=== PATIENT | female | born 1980 | race Caucasian/White ===

== ENCOUNTER 2024-12-31 15:30 | Outpatient (REF) | payer OTHER, SELFPAY ==
--- OUTSIDE RECORDS SUMMARY | 2024-12-31 17:04 | XMS_ITS | Clinical Summary ---
Author Organization [employer] [facility] Address [address] [place] [address] Care Team Providers Care Enterprise Project Manager Name Role Phone Unavailable Primary Care Provider Unavailabl e Allergies No known active allergies Medications omeprazole (PriLOSEC) [address] capsule PLEASE SEE ATTACHED FOR DETAILED DIRECTIONS 5 Active losartan (Cozaar) 25 MG tablet Take by mouth. Activ e gabapentin (Neurontin) 800 MG tablet Take 1 tablet by mouth every 6 (six) hours during the day. 5 Active folic acid (Folvite) 1 MG tablet Take 1 tablet by mouth Once per day. 5 Active lovastatin (Mevacor) 20 MG tablet Take 1 tablet by mouth Once per day. 5 Active QUEtiapine (SEROquel) 100 MG tablet TAKE 1.5 TABLETS ORALLY AT EVERY BEDTIME 5 Active Active Problems No known active problems Encounters Date Type Department Care Team Description 10/14/2024 9:00 AM EDT Office Visit [facility] [address] [place] [address] Jordyn Prescott from Last 3 Months Social History Tobacco Use Types Packs/Day Years Used Date Smoking Tobacco: Every Day Cigarettes Smokeless Tobacco: Never Tobacco Cessation:Ready to Q uit: Not Asked; Counseling Given: Not Answered Comments:Vapes Alcohol Use Standard Drinks/Week Comments Defer 0 (1 standard drink = 0.6 oz pur e alcohol) Comments Unknown Sex and Gender Information Value Date Recorded Sex Assigned at Female 02/08/2024 12:54 PM EDT Legal Sex Female 12:52 PM EDT Gender Identity Female 02/08/2024 12:54 PM EDT Sexual Orientation Choose not to disclose 2023 12:54 PM EDT Last Filed Vital Signs Vital Sign Reading Time Taken Comments Blood Pressure 122/76 10/14/2024 8:57 AM EDT Pulse 60 03/01/2024 12:53 PM EDT Temperature - - Respiratory Rate - - Oxygen Saturation - - Inhaled Oxygen Concentration - - Weight - - Height - - Body Mass Index - - Plan of Treatment Upcoming Encounters Date Type Department Care Team ([facility] st Contact Info) Description 01/07/2025 2:30 PM EDT Office Visit [facility] [address] [place] [address] Shaka Teixeira, BRENNANS [address] [facility] [place] [address] 04/16/2025 1:00 PM EST Office Visit [facility] [address] [place] [address] oJrdyn Prescott Health Maintenance Due Date Last Done Comments Dental Oral Exam 1982 Depression Screening 1982 HIV Screening 1982 Lipid Panel 1982 SDOH Screening 1982 Disability Screening 1982 Alcohol/Substance Use Screening 1994 Family Planning (PISQ) 1997 HPV Vaccines (1 - 3-dose series) 1997 Hepatitis C Screening 2000 DTaP/Tdap/Td Vaccines (1 - Tdap) 2001 Hepatitis B Vaccines (1 of 3 - 19+ 3-dose series) 2001 Pneumococcal Vaccine: Pediatrics (0 to 5 Years) and At-Risk Patients (6 to 49) Years (1 of 2 - PCV) 2001 Pap Smear 2003 Cervical Cancer Screening 2012 HPV/Cotest 2012 Mammogram 2022 COVID-19 Vaccine (1 - 2023-2 5 season) 2024 Influenza Vaccine (#1) 2025 Dental X-Ray: Bitewings 03/02/2025 03/01/2024 Dental Prophylaxis 04/16/2025 10/14/2024, 03/01/2024 Tobacco Screening 10/14/2025 10/14/2024 Dental X-Ray: Full Mouth 03/02/2027 03/01/2024 Zoster Vaccines (1 of 2) 2032 RSV Patients and Patients Aged 60 years or older (1 - 1-dose 75+ series) 2057 HIB Vaccines Aged Out No longer eligi ble based on patient's age to complete this topic Hepatitis A Vaccines Aged Out No long er eligible based on patient's age to complete this topic IPV Vaccines Aged Out No longer eligi ble based on patient's age to complete this topic Meningococcal B Vaccine Aged Out No l onger eligible based on patient's age to complete this topic Meningococcal Vaccine Aged Out No [place] eligible based on patient's age to complete this topic RSV under 20 months Aged Out No longe r eligible based on patient's age to complete this topic Rotavirus Vaccines Aged Out No longer eligible based on patient's age to complete this topic Procedures Procedure Name Priority Date/Time Associated Diagnosis Comments ORAL HYGIENE INSTRUCTIONS Routine 2024 9:00 AM EDT PROPHYLAXIS - ADULT Routine 10/14/2024 9 :00 AM EDT INTRAORAL - COMPLETE SERIES OF RADIOGRAPHIC IMAGES Routine 03/01/2024 1:00 PM EDT from Last 3 Months or Most Recently Relevant to Health Maintenance Insurance [address] [place] [address]
--- OUTSIDE RECORDS SUMMARY | 2024-12-31 17:04 | XMS_ITS | Clinical Summary ---
Author Organization [facility] Address [address] [place] [address] Care Team Providers Care Cashier Office Name Role Phone BabsBekah Primary Care Provider [phone] Source Comments PLEASE NOTE, if this patient is a minor, it may be UNLAWFUL to discuss sensitive information that is contained in these records (such as FAMILY PLANNING, MENTAL HEALTH or SUBSTANCE ABUSE) with the minor patient's parent or other person without the patient's specific authorization.[facility] Allergies No known active allergies Medications loratadine (CLARITIN) 10 mg tabletIndication s:Seasonal allergic rhinitis, unspecified allergic rhinitis trigger Take 1 Tab by mouth once daily as needed for allergies 30 Tab 2 7 Active aspirin-acetamin ophen-caffeine (EXCEDRIN MIGRAINE) 250-250-65 mg per tabletIndication s:Migraine without aura and without status migrainosus, not intractable Take 1 Tab by mouth every 6 (six) hours as needed for pain (migraine mild-mod) 50 Tab 3 7 Active amitriptyline (ELAVIL) 25 mg tabletIndication s:Migraine with aura and without status migrainosus, not intractable Take 1 Tab by mouth nightly at bedtime 30 Tab 2 7 Active SUMAtriptan (IMITREX) 25 mg tabletIndication s:Migraine with aura and without status migrainosus, not intractable Take 1 Tab by mouth once as needed for migraine May repeat in 2 hours if no relief. Do not take more than 8 tablets in 24 hours. 30 Tab 7 Active melatonin 10 mg tabIndications:P sychophysiologic al insomnia Take 1 Tab by mouth nightly at bedtime as needed (insomnia) 30 Tab 2 7 Active methocarbamol (ROBAXIN) 500 mg tabletIndication s:Muscle spasm of back TOME KATHY TABLETA CHELO VECES AL JENELLE 60 Tab 9 Active Active Problems Problem Noted Date Diagnosed Date Bipolar II disorder, most re cent episode major depressive (HCC-CMS) - Moderate 07/13/2018 Psychophysiological insomnia 11/02/2016 Ectopic without intrauterine ([facility]-H[facility]) 08/09/2016 Overview (11/08/2016): 10/26/16 F/u Dr Medina at [facility]. S/p lap Right salpingectomy for ruptured ectopic 07/30/16. On Depo for control. C/o Pain on L side. labs done, pain assessment not c/w acute process, advised heat and Tylenol, f/u 6 weeks. Migraine without aura and wi thout status migrainosus, not intractable 07/13/2016 Overview (11/11/2016): 10/22/16 [facility] for VELASQUEZ, no treatment given Immunizations Immunization Administration Dates Next Due Flu, Preservative Free 2018,07/13/2016 PFIZER COVID VACCINE, PURPLE CAP, 12+ 02/04/2021 ,12/24/2020 Pfizer-BioNTech COVID-19 Vac cine Bivalent, (SPANGLER PFIZER-BIONTECH COVID-19 VACCINE BIVALENT, (SPANGLER CAP 04/21/2022 Social History Tobacco Use Types Packs/Day Years Used Date Smoking Tobacco: Never Smokeless Tobacco: Never Alcohol Use Standard Drinks/Week Comments No 0 (1 standard drink = 0.6 oz pur e alcohol) Social Connections Answer Date Recorded Connectedness 0 02/02/2024 Financial Resource Strain Answer Date R ecorded Financial Resource Strain 0 2018 Stress Answer Date Recorded Stress 0 01/06/2019 Physical Activity Answer Date Recorded Physical Activity 0 01/06/2019 Food Insecurity Answer Date Recorded Food 0 02/08/2024 Transportation Needs Answer Date Record ed Transportation 0 01/06/2019 Housing Stability Answer Date Recorded Housing 0 01/06/2019 Safety and Environment Answer Date Tong rded Safety 0 01/06/2019 Utilities Answer Date Recorded Utilities 0 01/06/2019 Employment Answer Date Recorded Stress 0 02/02/2024 Comments No Sex and Gender Information Value Date Recorded Sex Assigned at Female 2018 8:29 AM PST Legal Sex Female 12:49 PM PST Gender Identity Female 2018 8:29 AM PST Sexual Orientation Straight 2018 8: 29 AM PST Last Filed Vital Signs Vital Sign Reading Time Taken Comments Blood Pressure 100/70 2018 11:30 AM EST Pulse 78 2018 11:30 AM EST Temperature 36.6 C (97.9 F) 2018 11:30 AM EST Respiratory Rate 18 2018 11:30 AM EST Oxygen Saturation 97% 05/10/2016 3:59 PM EST Inhaled Oxygen Concentration - - Weight 75.3 kg (166 lb) 2018 11:30 AM EST Height 170.2 cm (5' 7 ) 2018 11:30 AM EST Body Mass Index 26 2018 11:30 AM EST Plan of Treatment Health Maintenance Due Date Last Done Comments Diabetes Screening 1982 HPV Screening 1982 Hepatitis C Screening 1982 Lipid Screening 1982 Pap + HPV 1982 Tobacco Screening 1982 HIV Screening 1997 Relationship Safety Screening/Counseling 1997 Imm-Hepatitis B (1 of 3 - 19 + 3-dose series) 2001 Cervical Cancer Screening 2003 Pap Smear 2003 Hypertension Screening (#1) 2019 Anxiety Screening 07/03/2019 07/03/2018 Breast Cancer Screening (Mammogram) 2022 [id number] ( season) 2024 04/21/2022, 02/04/2021, 12/24/2020 Alcohol and Drug Screen 05/15/2024 07/03/19 19, 07/03/2018, 2018, Additional history exists Depression Annual Screen 05/15/2024 07/03/2018, 03/0 05/2016 Imm-Influenza (#1) 2025 03/30/2021, 1 , 2018, Additional history exists Imm-DTaP/Tdap/Td (2 - Td or Tdap) 06/19/2028 019 Cervical Ablation/Cold-Knife Conization Discontinued Cervical Cryotherapy Discontinued Colposcopy Discontinued Endometrial Biopsy Discontinued Excision/Leep Discontinued HPV Genotyping Discontinued Vaginal Pap Discontinued Vulvoscopy Discontinued Insurance [place] MEDICA[place] DENTAL [facility] SAFETY NET DENTAL DENTAL DENTAL [facility] [place] [address] Care Teams Cashier Office Relationship Specialty Start Date End Date Bekah Brice FNP [address] [place] [address] PCP - General Family Medicine, [facility] 06/03/16
[2024-12-31 18:46] LABS: Uric Acid 5.4 mg/dL (2.4-5.7)
== END 2024-12-31 15:31 | disposition home or self-care (01) ==
LOC: HO.CHCLDS 15:30
PROVIDERS: PCP Nurse Practitioner Family; Visit Provider Nurse Practitioner Family
DX: M54.59 Other low back pain (principal); M10.9 Gout, unspecified; N39.0 Urinary tract infection, site not specified
CPT/HCPCS: 36415; 84550; 85652; 87086; 87088; 87186